=== PATIENT | female | born 1950 | race Caucasian/White ===

== ENCOUNTER 2024-03-16 11:41 | Emergency (ER) | payer MEDICARE, SELFPAY ==
--- NOTE | ~2024-03-16 | XR_ITS ---
EXAMINATION: XR chest 2V DATE: 03/16/2024 12:25 INDICATION: Cough. TECHNIQUE: Frontal and lateral views of the chest were obtained. COMPARISON: None. FINDINGS: There is no pneumonia, pleural effusion, or pneumothorax. The heart size is normal. IMPRESSION: 1. No acute cardiopulmonary disease. Reviewed, dictated and finalized at location A. [employer]
[2024-03-16 12:07] VITALS: BP 116/80; PULSE 74; RESP 16; TEMP 37.1; O2SAT 99
--- NOTE | 2024-03-16 12:11 | ED.URI ---
HPI - URI/Sore Throat General Chief Complaint: Upper Respiratory Infection Stated Complaint: COUGH Time Seen by Provider: 03/16/24 12:10 Source: patient Mode of arrival: ambulatory Limitations: no limitations History of Present Illness HPI Narrative: Odalis is a 73-year-old female patient presenting to the clinic today with complaints of cough and chest congestion times 5-7 days. She denies any chest pain or shortness of breath. She is concerned that she may have pneumonia. Feels As though she has had the flu earlier this week MD elicited complaint: cough, nasal congestion and other (Chest congestion) Related Data Home Medications ?Medication ?Instructions ?Recorded ?Confirmed ?Last Taken ?Type magnesium 200 mg tablet 200 mg PO DAILY 09/12/19 Unknown History multivitamin 1 tablet PO DAILY 09/12/19 Unknown History Allergies Allergy/AdvReac Type Severity Reaction Status Date / Time No Known Allergies Allergy Unverified 09/12/19 13:11 Review of Systems Review of Systems: Pertinent positives per HPI. Patient denies any fever, chills, rash, headache, visual changes, dizziness, shortness of breath, chest pain, palpitations, nausea, vomiting, diarrhea, constipation, abdominal pain, or any urinary issues. [facility] Past Medical History Medical History (Updated 03/16/24 @ 12:46 by Davis Reyna APRN) Fibrocystic breast History of vaginal delivery x 2 Surgical History Surgical History (Updated 09/12/19 @ 13:14 by Carey Xiao MA) H/O lumpectomy Tubal ligation status History of colonoscopy with polypectomy Family History Family History (Updated 09/12/19 @ 08:06 by Zahra Faye CMA) Father Family history of chronic obstructive pulmonary disease Mother Breast cancer Carcinoma of colon Diabetes mellitus Acute myocardial infarction Heart disease Social History Social History Smoking status: Never smoker Comments At the time of my signature, I reviewed and agree with the nursing past medical, surgical, social, and family history. There is no relevant family history pertinent to the patient complaint. Exam Narrative: General: Well-developed, well nourished, in no apparent distress Head: Normocephalic, atraumatic Eyes: Pupils equally round and reactive to light bilaterally, EOM intact, sclera and conjunctive clear, no discharge, lids normal Ears: TMs intact and clear, ear canals clear, no drainage, grossly hearing normal. Nose: Nares patent, clear nasal discharge, no inflammation, no sinus tenderness. Mouth: Oral pharynx without lesions or masses, good dentition, MMM. Postnasal Neck: Supple, trachea midline, no enlargement of anterior or posterior cervical nodes, no thyroid masses or goiter palpable. Cardio: Regular rate and rhythm, s1 and s2 normal, no murmur appreciated. Resp: Clear to auscultation bilaterally, no rhonchi, rales, wheezing or rubs Course Course Emergency Course: Portions of this record may have been created with voice recognition software. Level of Care: Express Care Visit Vital Signs Vital signs: Vital Signs Temperature 37.1 C 03/16/24 12:07 Pulse Rate 74 03/16/24 12:07 Respiratory Rate 16 03/16/24 12:07 Blood Pressure 116/80 03/16/24 12:07 Pulse Oximetry 99 03/16/24 12:07 Temperature 37.1 C 03/16/24 12:07 Pulse Rate 74 03/16/24 12:07 Respiratory Rate 16 03/16/24 12:07 Blood Pressure 116/80 03/16/24 12:07 Pulse Oximetry 99 03/16/24 12:07 Vital signs reviewed MDM - URI/Sore Throat MDM Narrative Medical decision making narrative: At the time of visit patient is resting comfortably on the exam table. Patient appears to be nontoxic. Patient is concerned about pneumonia your lung sounds are clear in the clinic today. Diagnostics: X-ray of the chest was performed and is negative for any acute cardiopulmonary process. Plan: I suspect patient has URI with cough and congestion. Prescription for albuterol inhaler and prednisone was sent to the pharmacy. Supportive measures were discussed with the patient and they voiced understanding discharge instructions and agrees to treatment plan. Return precautions reviewed Differential Diagnosis Differential diagnosis: Likely upper respiratory infection, otitis media, sinusitis, viral infection, bronchitis, influenza, pharyngitis and other (COVID) Discharge Plan Discharge Clinical Impression: Upper respiratory infection with cough and congestion Patient Disposition: Home, Self-Care Condition: Stable Instructions: Antibiotic Form, Cold Symptoms (ED) Additional Instructions: Chest x-ray is negative for any acute cardiopulmonary process. Take prescription medications only as prescribed-prednisone and albuterol inhaler Increase fluids and stay well hydrated Tylenol/motrin for pain/fever Flonase and OTC antihistamines as directed Vicks vapor rub to open sinuses Sinus rinses for congestion Cepacol spray, cough drops, throat lozenges, warm tea with honey/lemon, gargle salt water to soothe throat BRAT diet for diarrhea Clear liquids x 24 hours then advance as tolerated for nausea/vomiting Go to the ED if you develop a worsening in your condition- high fever not controlled by Tylenol or Motrin, dehydration, weakness, lethargy, shortness of breath, or chest pain. Follow up with your PCP in 3-5 days if symptoms persist. Patient Language: Uzbek Prescriptions: New prednisone 20 mg tablet 40 mg PO DAILY 5 Days Qty: 10 0RF albuterol sulfate 90 mcg/actuation HFA aerosol inhaler 2 puff inhalation Q4-6H PRN (Reason: shortness of breath or wheezing) 30 Days Qty: 8.5 0RF No Action multivitamin Tablet 1 tablet PO DAILY magnesium 200 mg tablet 200 mg PO DAILY Rx Instructions: 1 tab TID Follow-up/Referrals: Kory Kenney MD [Primary Care Provider] - Time of Disposition: 12:46 Quality NIHSS Nursing Documentation ED NIHSS nursing documentation: reviewed/agree
== END 2024-03-16 13:01 | disposition home or self-care (01) ==
PROVIDERS: Emergency Provider Nurse Practitioner Family; PCP Internal Medicine
DX: J06.9 Acute upper respiratory infection, unspecified (principal); R05.9 Cough, unspecified
CPT/HCPCS: 71046; 99213; G0463